=== PATIENT | female | born 1995 | race Asian ===

== ENCOUNTER 2016-09-24 22:28 | Emergency (ER) | payer SELFPAY ==
[~2016-09-24] VITALS: Ht 154.9 cm; Wt 43.1 kg
[2016-09-24 22:43] VITALS: BP 104/55
[2016-09-24] MEDS ORDERED: Bacitracin Oint UD TOPIC ONE (23:15)
[2016-09-24] MEDS ORDERED: Lidocaine 1% 10mg/ml/Epi 0.005mg/ml 30ml vial INJ ONE (23:15)
[2016-09-24] MEDS ORDERED: BACITRACIN1 APPLIC TOPIC (23:43)
--- NOTE | 2016-09-24 23:49 | Emergency Room Report ---
History of Present Illness General Chief Complaint: Laceration Source: Patient Present Illness HPI Patient with non-syncopal fall hitting her chin. Laceration and some bleeding. Tet UTD. No sig pain in neck. No LOC. Pain is 3/10 sharp. No medical problems. No other somatic complaints. Allergies: Coded Allergies: No Known Allergies (Unverified , 09/24/16) Patient History Past Medical History: see triage record Social History: Denies: smoking Social History Narrative working Last Menstrual Period: 09/13/16 Now: No Nursing Documentation-[facility] Past Medical History: No Stated History Review of Systems Constitutional: Denies: fever Eye: Denies: blurred vision ENT: Reports: see HPI Respiratory: Denies: shortness of breath Cardiovascular: Denies: chest pain Gastrointestinal: Denies: nausea, vomiting Musculoskeletal: Reports: see HPI Skin: Reports: see HPI Neurological: Reports: see HPI Hematologic/Lymphatic: Reports: see HPI Physical Exam Vital Signs Date Time Temp Pulse Resp B/P Pulse Ox O2 Delivery O2 Flow Rate FiO2 09/24/16 22:31 97.5 78 15 104/55 100 Room Air Sp02 EP Interpretation: reviewed, normal General Appearance: well appearing, no apparent distress Head: normocephalic, atraumatic Eyes: bilateral eye PERRL - contacts, bilateral eye normal inspection ENT: hearing grossly normal, normal voice, other - jaw with good alignment Neck: full range of motion, supple, no bony tend Respiratory: no respiratory distress, speaking full sentences Cardiovascular #1: regular rate, rhythm Cardiovascular #2: 2+ radial (L) Gastrointestinal: normal inspection Musculoskeletal: digits/nails normal, gait/station normal, normal range of motion, no calf tenderness Neurologic: alert, motor strength/tone normal, sensory intact, cerebellar normal, normal gait, grossly normal Psychiatric: mood/affect normal Skin: warm/dry, laceration - 2 cm chin laceration Procedures Laceration/Wound Repair Laceration/Wound Repair : Consent: Verbal Wound Location: face Wound's Depth, Shape: into muscle, linear Wound Length (cm): 2 Wound Explored: clean Irrigated w/ Saline (ccs): 10 Betadine Prep?: Yes Anesthesia: Lidocaine w/ Epi Wound Debrided: none Wound Repaired With: sutures Suture Size/Type: 6:0 Layer Closure?: Yes Deep Layer Suture Size/Type: 6:0, other - vicryl Sterile Dressing Applied?: Yes Splint Applied?: No Patient Tolerated: Well Complications: None Medical Decision Making Diagnostic Impression: Primary Impression: Chin laceration Qualified Codes: S01.81XA - Laceration without foreign body of other part of head, initial encounter ER Course Patient presents with chin laceration post fall. No clinical evidence of fracture. Needs sutures - 2 layer cosmetic closure. Tolerated laceration repair. Patient stable for outpatient observation and treatment. Last Vital Signs Date Time Temp Pulse Resp B/P Pulse Ox O2 Delivery O2 Flow Rate FiO2 09/25/16 00:05 98.0 75 16 109/61 100 Room Air Status: improved Disposition: HOME, SELF-CARE Condition: Improved Scripts Bacitracin (Bacitracin Zinc) 15 Gm Oint...g. 1 APPLIC TOPIC BID, #10 APPLIC Prov: Jian Antonio M.D. 09/24/16 Patient Instructions: Facial Laceration Additional Instructions: Keep clean and dry. Apply antibiotic ointment twice a day. Return to have the sutures out in 6-7 days. OK tylenol or advil. Jian Antonio M.D. Sep 24, 2016 23:49
[2016-09-25 00:05] VITALS: BP_SYST 104; BP_SYST 109; BP_DIAS 55; BP_DIAS 61
== END 2016-09-25 00:05 | disposition home or self-care (01) ==
LOC: EMR 23:20
DX: S01.81XA Laceration without foreign body of other part of head, initial encounter (principal); W18.30XA Fall on same level, unspecified, initial encounter; Y92.9 Unspecified place or not applicable; Y99.8 Other external cause status